=== PATIENT | female | born 1935 | race Caucasian/White ===

== ENCOUNTER 2016-08-06 20:41 | Emergency (ER) | payer MEDICARE, OTHER ==
--- NOTE | ~2016-08-06 | ER ---
PATIENT'S NAME: KAUSHIK CURRY [facility] AGE: 80 Y [address] ROOM: [place] [address] LOCATION: [facility] ADMIT DATE: 08/06/2016 ER/Outpatient Report DISCHARGE DATE: 08/06/2016 FAMILY PHYSICIAN: Jerri Ordonez MD ATTENDING PHYSICIAN: Alexys Michele CHIEF COMPLAINT: Elevated blood pressure, dizziness, and vertigo. HISTORY OF PRESENT ILLNESS: This patient is an 80-year-old female, about 1800 hours of sitting in a chair and just did not feel right. Got lightheaded, dizzy, and some vertigo. She also had a frontal headache and just was not feeling good. She had some left shoulder discomfort for couple minutes, nauseated, but no vomiting, diarrhea, or urinary frequency, urgency, or dysuria. No real chest pain or shortness of breath. No eyes, ears, nose, throat, neck, or spine pain. No joint or muscle swelling, redness, or pain. No skin eruptions or rash. No history of endocrine problems, neuro changes, or psych issues. HOME MEDICATIONS: See attached medication list. ALLERGIES: VASOTEC. SOCIAL HISTORY: Nonsmoker, occasional intake of alcohol. SIGNIFICANT PAST MEDICAL HISTORY: Hypertension, chronic venous stasis, varicose veins, dyslipidemia, degenerative osteoarthritis, degenerative joint disease, right footdrop of chronic kidney disease, atherosclerotic ischemic heart disease with coronary artery disease, lumbar spinal stenosis, paroxysmal atrial fibrillation. OPERATIONS: Left total knee arthroplasty, hysterectomy, appendectomy, right cataract extraction. REVIEW OF SYSTEMS: All systems reviewed by me are negative with the exception of those discussed in the history of present illness. PHYSICAL EXAMINATION: VITAL SIGNS: Temperature 98.9, tympanic; pulse 86; respirations 16; blood pressure 151/98, O2 saturation on room air is 98%. PATIENT'S NAME: KAUSHIK CURRY [facility] AGE: 80 Y [address] ROOM: [place] [address] LOCATION: [facility] ADMIT DATE: 08/06/2016 ER/Outpatient Report DISCHARGE DATE: 08/06/2016 FAMILY PHYSICIAN: Jerri Ordonez MD ATTENDING PHYSICIAN: Alexys Michele HEENT: Head: Normocephalic. Eyes, Ears, Nose, Throat: Clear. Mucous membranes are moist. Teeth and jaw intact. NECK: No nuchal rigidity. No findings of adenopathy. LUNGS: Clear. HEART: Regular. Pulses are palpable. ABDOMEN: Soft, nondistended, and nontender. Good bowel tones. No organomegaly or abnormal masses palpable. EXTREMITIES: Intact. NEUROVASCULAR: Intact. SKIN: Clear. No skin eruptions or rash. DIAGNOSTIC DATA: EKG showed sinus rhythm, some inferior changes probably old. No acute ST elevation. Chest x-ray showed no acute infiltrate. We will review x-ray with the radiologist. LABORATORY DATA: White count 7200, 62 segs, 25 lymphs, 4 monos, 8 eos, 1 baso. Hemoglobin was 11.2 with hematocrit 34.7, platelet count is 239,000. Sedimentation rate 16. PTT was 25, pro-time is 10.5, and INR 1.0. CMS was normal except for an elevated glucose of 115, elevated BUN of 31, elevated creatinine 1.6, low GFR 31, magnesium was 2.3. CPK was 155. Izryi-xd-enxh cardiac enzymes are normal. CRP was less than 0.29. Thyroid was normal. ProBNP was 401. IMAGING PROCEDURE: CT scan of the head showed no intracranial bleed, midline shift, mass effect, or skull fracture. CT scan was read by Radiology, see dictated transcribed report. EMERGENCY DEPARTMENT COURSE: I did give the patient clonidine 0.1 mg orally in the emergency room with improvement in her pressure and also for her symptomatology when her pressure came down. IMPRESSION: 1. Hypertension. 2. Vertigo with some lightheadedness. 3. Chronic renal disease. 4. Atherosclerotic ischemic heart disease with coronary artery disease. 5. Dyslipidemia. 6. Degenerative osteoarthritis with joint disease. PLAN: The patient was given clonidine 0.1 mg orally. Discharged home, observation. Activity as tolerated. Continue present home medications and care. Follow up PATIENT'S NAME: KAUSHIK CURRY [facility] AGE: 80 Y [address] ROOM: [place], [place] [address] LOCATION: [facility] ADMIT DATE: 08/06/2016 ER/Outpatient Report DISCHARGE DATE: 08/06/2016 FAMILY PHYSICIAN: Jerri Ordonez MD ATTENDING PHYSICIAN: Alexys Michele with personal physician for blood pressure check tomorrow. Discussed ensued with the patient concerning my findings and recommendations, she understands. MD ANTONETTE ANDRADE/salvador /[id number] d: 08/06/16 2359 t: 08/07/16 0342, OUTPATIENT REPORT
[2016-08-06 21:28] LABS: BASOPHIL # 0.1 K/uL (0.0-0.2); BASOPHIL % 1.1 %; EOSINOPHIL # 0.6 K/uL (0.0-0.5); EOSINOPHIL % 8.2 %; HEMATOCRIT 34.7 % (30.0-46.0); HEMOGLOBIN 11.2 g/dL (10.0-15.0); IMMATURE GRANULOCYTE % 0.4 %; LYMPHOCYTE # 1.8 K/uL (0.8-4.0); LYMPHOCYTE % 24.5 %; MCH 30.5 pg (27.0-34.0); MCHC 32.3 gm/dL (32.0-36.5); MCV 94.6 fl (83.0-98.0); MONOCYTE # 0.3 K/uL (0.0-1.0); MONOCYTE % 4.2 %; MPV 9.6 fl (9.4-12.4); NEUTROPHIL # (ANC) 4.4 K/uL (1.8-7.8); NEUTROPHIL % 61.6 %; NRBC % 0 /100WBC (0-0.00); PLATELET COUNT 239 K/uL (150-450); RBC 3.67 M/uL (3.00-5.00); RDW-CV 14.2 % (11.9-14.6); WBC 7.2 K/uL (4.0-11.0)
[2016-08-06 21:35] LABS: PROTIME 10.5 SECONDS (9.6-11.1); PTT 25 SECONDS (25-32)
[2016-08-06 21:51] LABS: ALBUMIN 3.8 gm/dL (3.5-5.0); ALK PHOS 91 IU/L (33-138); ALT 27 IU/L (12-78); ANION GAP 16.3 (10.0-19.0); AST 32 IU/L (10-40); BLOOD UREA NITROGEN 31 mg/dL (6-24); CHLORIDE 103 mMol/L (96-110); CO2 23 mMol/L (22-32); CPK 155 IU/L (21-215); CREATININE 1.6 mg/dL (0.5-1.1); ESTIMATED GFR (MDRD EQUATION) 31; MAGNESIUM 2.3 mg/dL (1.3-2.6); POTASSIUM 4.3 mMol/L (3.7-5.1); SODIUM 138 mMol/L (135-145); TOTAL BILIRUBIN 0.5 mg/dL (0.0-1.5); TOTAL PROTEIN 7.5 g/dL (6.0-8.4)
[2017-02-19] MEDS ORDERED: NORVASC5 MG PO (10:33)
[2017-02-19] MEDS ORDERED: BENICAR40 MG PO (10:33)
[2017-02-19] MEDS ORDERED: ZOCOR40 MG PO (10:34)
[2017-02-19] MEDS ORDERED: ALDACTONE25 MG PO (10:34)
[2017-02-19] MEDS ORDERED: NABUMETONE750 MG PO (10:34)
[2017-02-19] MEDS ORDERED: VITAMIN D1000 UNI1 PO (10:36)
[2017-02-19] MEDS ORDERED: CLEOCIN HCL300 MG PO (10:36)
[2017-02-19] MEDS ORDERED: EQ ACETAMINOPH PO (10:37)
[2017-02-19] MEDS ORDERED: VIACTIV SOFT C1 EACH PO (10:38)
[2017-02-19] MEDS ORDERED: CALCIUM500 MG PO (10:39)
[2017-02-19] MEDS ORDERED: ASPIRIN325 MG PO (10:39)
[2017-02-19] MEDS ORDERED: TONIC WATER PO (10:41)
== END 2016-08-06 22:12 | disposition disaster alternative care site (69) ==
LOC: GMED 20:41
PROVIDERS: Emergency Medicine
DX: I12.9 Hypertensive chronic kidney disease with stage 1 through stage 4 chronic kidney disease, or unspecified chronic kidney disease (principal); N18.9 Chronic kidney disease, unspecified; R42 Dizziness and giddiness; I25.10 Atherosclerotic heart disease of native coronary artery without angina pectoris; E78.5 Hyperlipidemia, unspecified; M19.90 Unspecified osteoarthritis, unspecified site; I48.0 Paroxysmal atrial fibrillation; Z90.710 Acquired absence of both cervix and uterus; Z90.49 Acquired absence of other specified parts of digestive tract; Z98.890 Other specified postprocedural states
CPT/HCPCS: A9270

== ENCOUNTER 2016-09-04 05:28 | Emergency (ER) | payer MEDICARE, OTHER ==
--- NOTE | ~2016-09-04 | ER ---
PATIENT'S NAME: KAUSHIK CURRY [facility] AGE: 80 Y [address] ROOM: [place] [address] LOCATION: [facility] ADMIT DATE: 09/04/2016 ER/Outpatient Report DISCHARGE DATE: 09/04/2016 FAMILY PHYSICIAN: Jerri Ordonez MD ATTENDING PHYSICIAN: Troy Dillard HISTORY OF PRESENT ILLNESS: Kaushik Curry is an 80-year-old female who tripped while at the [employer] center this morning. She initially saw Dr. Dillard, please refer to his dictation. She does have an abrasion on the right side of her scalp, not requiring any sutures. Her tetanus was updated here this morning. She is alert and oriented. Her head CT is negative, and she will be discharged home. IMPRESSION: 1. Head injury. 2. Abrasion. PLAN: Head injury precautions. Rest. Tylenol as needed. Ice p.r.n. Follow up with Dr. Ordonez in 1 to 2 days, follow up sooner if any problems or concerns. Again, her tetanus was boosted here in the emergency room. TATUM PHOENIX MD CAR/modl /[id number] d: 09/04/161911 t: 09/05/16 1427, OUTPATIENT REPORT
--- NOTE | ~2016-09-04 | ER ---
PATIENT'S NAME: KAUSHIK CURRY [facility] AGE: 80 Y [address] ROOM: [place] [address] LOCATION: [facility] ADMIT DATE: 09/04/2016 ER/Outpatient Report DISCHARGE DATE: 09/04/2016 FAMILY PHYSICIAN: Jerri Ordonez MD ATTENDING PHYSICIAN: Troy Dillard CHIEF COMPLAINT: Fall. HISTORY OF PRESENT ILLNESS: The patient was down at the pool area here at [facility] for her morning workout when she got her feet tangled up in the matting near the pool. She did fall. She did strike her head. She denies loss of consciousness. She did have some bleeding and it was recommended that she come in. The patient has no specific complaints. Denies any pain anywhere including her head, her neck or back. She has been walking okay with no difficulties and has no other complaints. PAST MEDICAL HISTORY: Documented on the record and reviewed by me. SOCIAL HISTORY: Documented on the record and reviewed by me. MEDICATIONS: Documented on the record and reviewed by me. ALLERGIES: DOCUMENTED ON THE RECORD AND REVIEWED BY ME. REVIEW OF SYSTEMS: All systems reviewed and negative except as noted in the HPI. PHYSICAL EXAMINATION: VITAL SIGNS: Blood pressure 155/74, pulse 74, respiratory rate 16, temperature 98.7, and SpO2 is 94% on room air. GENERAL: Age-appropriate female, no obvious pain or distress, walking without difficulty using her cane in a very brisk manner. NEURO: The patient is awake and alert. GCS 15. No focal deficits. No asymmetry. HEENT: There is a very mild contusion on the right temporal area with some deformity of the glasses and not amenable to intervention. No active bleeding. No palpable skull defect. Eyes are PERRL, extraocular movements are intact. The oropharynx is clear. NECK: Supple. Trachea is midline. No cervical spine tenderness with entire PATIENT'S NAME: KAUSHIK CURRY [facility] AGE: 80 Y [address] ROOM: [place] [address] LOCATION: [facility] ADMIT DATE: 09/04/2016 ER/Outpatient Report DISCHARGE DATE: 09/04/2016 FAMILY PHYSICIAN: Jerri Ordonez MD ATTENDING PHYSICIAN: Troy Dillard range of motion. BACK: Nontender to palpation throughout. No CVA tenderness. CHEST: Normal to inspection and palpation. HEART: Regular rate and rhythm with no murmurs. LUNGS: Clear to auscultation bilaterally with no rhonchi, wheezes, or rales. ABDOMEN: Benign. EXTREMITIES: Warm and well perfused with no areas of focal tenderness, bruising, or pain. SKIN: Warm, dry, and intact. LABORATORY DATA AND X-RAYS: Head CT is pending. IMPRESSION: Fall with minor head laceration. EMERGENCY DEPARTMENT COURSE: The patient is seen and evaluated. She is on aspirin, and at her age, I am recommending a head CT. That is pending. The patient has no neck pain. I discussed the recommendation of C-spine CT, the patient has declined. I believe that it is reasonable at this point in time. Her tetanus was updated. Wound cares were discussed. The patient was transitioned to the care of Dr. Quintana at 0600 hours with a plan to follow up the head CT results and disposition the patient accordingly. All questions were answered to the best of my ability prior to the patient hand-off. MD OPAL ALBRIGHT/salvador /[id number] d: 09/05/16 0716 t: 09/14/16 0934, OUTPATIENT REPORT
[2017-02-19] MEDS ORDERED: BENICAR40 MG PO (10:33)
[2017-02-19] MEDS ORDERED: NORVASC5 MG PO (10:33)
[2017-02-19] MEDS ORDERED: ZOCOR40 MG PO (10:34)
[2017-02-19] MEDS ORDERED: ALDACTONE25 MG PO (10:34)
[2017-02-19] MEDS ORDERED: NABUMETONE750 MG PO (10:34)
[2017-02-19] MEDS ORDERED: VITAMIN D1000 UNI1 PO (10:36)
[2017-02-19] MEDS ORDERED: CLEOCIN HCL300 MG PO (10:36)
[2017-02-19] MEDS ORDERED: EQ ACETAMINOPH PO (10:37)
[2017-02-19] MEDS ORDERED: VIACTIV SOFT C1 EACH PO (10:38)
[2017-02-19] MEDS ORDERED: CALCIUM500 MG PO (10:39)
[2017-02-19] MEDS ORDERED: ASPIRIN325 MG PO (10:39)
[2017-02-19] MEDS ORDERED: TONIC WATER PO (10:41)
== END 2016-09-04 07:00 | disposition disaster alternative care site (69) ==
LOC: GACC 05:28
DX: S01.01XA Laceration without foreign body of scalp, initial encounter (principal); S00.83XA Contusion of other part of head, initial encounter; Z23 Encounter for immunization; W01.0XXA Fall on same level from slipping, tripping and stumbling without subsequent striking against object, initial encounter

== ENCOUNTER → 2017-01-02 | Outpatient (CLI) | payer MEDICARE, OTHER ==
[~2017-01-02] MED LIST: ALDACTONE25 MG PO; ASPIRIN325 MG PO; BENICAR40 MG PO; CALCIUM500 MG PO; CLEOCIN HCL300 MG PO; EQ ACETAMINOPH PO; NABUMETONE750 MG PO; NORVASC5 MG PO; TONIC WATER PO; VIACTIV SOFT C1 EACH PO; VITAMIN D1000 UNI1 PO; ZOCOR40 MG PO
== END | disposition disaster alternative care site (69) ==
LOC: GBCOE 10:08
DX: Z12.31 Encounter for screening mammogram for malignant neoplasm of breast (principal)
CPT/HCPCS: G0202

== ENCOUNTER → 2017-02-22 | Outpatient (CLI) | payer MEDICARE, OTHER | LOC: GNJRC 10:38 | DX: Z01.818 Encounter for other preprocedural examination (principal); M17.11 Unilateral primary osteoarthritis, right knee; Z79.899 Other long term (current) drug therapy ==